=== PATIENT | male | born 1985 | race Caucasian/White ===

== ENCOUNTER 2016-11-11 09:02 | Inpatient (IN) | payer OTHER ==
[2016-11-11 10:16] VITALS: BMI 43.0
--- NOTE | 2016-11-11 10:54 | HP ---
COWS - Scale Resting Pulse: 0= [place] 80 or Below Sweatin=Flushed/Facial Moisture Restless Observation: 3= Extraneous Movement Pupil Size: 2= Moderately Dilated Bone or Joint Aches: 2= Severe Diffuse Aches Runny Nose/ Eye Tearin= Runny Nose/Eyes GI Upset > 30mins: 3= Vomiting/Diarrhea Tremor Observation: 2= Slight Tremor Visible Yawning Observation: 2= >3x During Session Anxiety or Irritability: 2=Irritable/Anxious Goose Flesh Skin: 0=Smooth Skin COWS Score: 20 CIWA Score - CIWA Score Nausea/Vomitin Muscle Tremors: 3 Anxiety: 3 Agitation: 3 Paroxysmal Sweats: 2 Orientation: 0-Oriented Tacttile Disturbances: 2-Mild Itch/Numbness/Burn Auditory Disturbances: 2-Mild Harshness/Frighten Visual Disturbances: 2-Mild Sensitivity Headache: 2-Mild CIWA-Ar Total Score: 22 Admission ROS BHS - HPI Chief Complaint: i need help to stop using heroin Allergies/Adverse Reactions: Allergies Allergy/AdvReac Type Severity Reaction Status Date / Time No Known Allergies Allergy Verified 11/11/16 11:05 History of Present Illness: this 31 years old male with heroin dependence and marijuana dependence,seeking help to stop,last detox [facility] 3 months ago infected both hands on clindymycin 300 mgs po tid for 2 days,has own medications several admissions in detox but relapsed longest period of sobriety 3 months insomnia Exam Limitations: No Limitations - Ebola screening Have you traveled outside of the country in the last 21 days: No Have you had contact with anyone from an Ebola affected area: No Have you been sick,other than usual withdrawal symptoms: No - Review of Systems Constitutional: Chills, Loss of Appetite, Night Sweats, Changes in sleep EENT: reports: Tearing, Nose Congestion Respiratory: reports: No Symptoms reported, Other (asthma) Cardiac: reports: Palpitations GI: reports: Diarrhea, Nausea, Vomiting, Abdominal cramping : reports: No Symptoms Reported Musculoskeletal: reports: Back Pain, Joint Pain, Muscle Pain, Joint Stiffness Integumentary: reports: Dryness Neuro: reports: Headache, Tremors Endocrine: reports: No Symptoms Reported Hematology: reports: No Symptoms Reported Psychiatric: reports: No Sypmtoms Reported (insomnia) Patient History - Patient Medical History Hx Anemia: No Hx Asthma: Yes (on albuterol nhaler) Hx Chronic Obstructive Pulmonary Disease (COPD): No Hx Cancer: No Hx Cardiac Disorders: No Hx Congestive Heart Failure: No Hx Hypertension: No Hx Hypercholesterolemia: No Hx Pacemaker: No HX Cerebrovascular Accident: No Hx Seizures: No Hx Dementia: No Hx Diabetes: No Hx Gastrointestinal Disorders: Yes (gerd no med) Hx Liver Disease: No Hx Genitourinary Disorders: No Hx Sexually Transmitted Disorders: No Hx Renal Disease (ESRD): No Hx Thyroid Disease: No Hx Human Immunodeficiency Virus (HIV): No (last 05/17 negative) Hx Hepatitis C: No Hx Depression: No Hx Suicide Attempt: No Hx Bipolar Disorder: No Hx Schizophrenia: No Other Medical History: in somnia,no suicidal - Patient Surgical History Hx Orthopedic Surgery: Yes (arthroscopic surgery of right shoulder x 2 in 2010) - PPD History Previous Implant?: Yes Documented Results: Negative w/proof Implanted On Prior [facility] Admission?: No PPD to be Administered?: Yes - Smoking Cessation Smoking history: Current every day smoker Have you smoked in the past 12 months: Yes Aproximately how many cigarettes per day: 20 Cigars Per Day: 0 Hx Chewing Tobacco Use: No Initiated information on smoking cessation: Yes 'Breaking Loose' booklet given: 11/11/16 - Substance & Tx. History Hx Alcohol Use: No Hx Substance Use: Yes Substance Use Type: Heroin, Marijuana Hx Substance Use Treatment: Yes ([facility] 08/15) - Substances Abused Heroin Route: Injection Frequency: Daily Amount used: 15 bags Age of first use: 29 Date of Last Use: 11/10/16 Xanax Route: Oral Frequency: 1-3 times last 30 days Amount used: 1-2 mg. Age of first use: 17 Date of Last Use: 11/10/16 Family Disease History - Family Disease History Family History: Denies Admission Physical Exam BHS - Vital Signs Vital Signs: Vital Signs - 24 hr 11/11/16 10:13 Temperature 97.0 F L Pulse Rate 72 Respiratory 18 Rate Blood Pressure 146/95 - Physical General Appearance: Yes: Moderate Distress, Obese, Tremorous, Irritable, Sweating, Anxious HEENTM: Yes: MERYL, Nasal Congestion Respiratory: Yes: Lungs Clear, Normal Breath Sounds, No Respiratory Distress Neck: Yes: Within Normal Limits, Supple, Trachea in good position Breast: Yes: Within Normal Limits Cardiology: Yes: Within Normal Limits, Regular Rhythm, Regular Rate, S1, S2 Abdominal: Yes: Within Normal Limits, Normal Bowel Sounds, Non Tender, Flat, Soft Genitourinary: Yes: Within Normal Limits Back: Yes: Muscle Spasm Musculoskeletal: Yes: full range of Motion, Back pain, Joint Stiffness, Muscle Pain Extremities: Yes: Tremors 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, Fully Oriented, Alert, Motor Strength 5/5 Integumentary: Yes: Dry, Track Luke, Other (infectes both hands cellulitis on clindamycin 300 mgs po did) Lymphatic: Yes: Within Normal Limits - Diagnostic (1) Cannabis dependence Current Visit: Yes Status: Acute (2) Asthma Current Visit: Yes Status: Acute (3) Cellulitis Current Visit: Yes Status: Acute (4) Morbid obesity Current Visit: Yes Status: Acute (5) Nicotine dependence Current Visit: Yes Status: Acute Cleared for Admission [facility] - Detox or Rehab [facility] Level of Care: Medically Managed Detox Regimen/Protocol: Methadone [facility] Breath Alcohol Content Breath Alcohol Content: 0 Urine Drug Screen - Results Drug Screen Negative: No Urine Drug Screen Results: THC-Marijuana, OPI-Opiates, MET-Methamphetamine, MTD- Methadone, TCA-Tricyclic Antidepress, OXY-Oxycodone
[2016-11-11] MEDS ORDERED: ACETAMINOPHEN 325 MG TABLET (FP) PO PRN (11:19)
[2016-11-11] MEDS ORDERED: hydrOXYzine PAMOATE 50 MG CAPSULE (FP) PO PRN (11:19)
[2016-11-11] MEDS ORDERED: MAG HYDROX/AL HYDROX/SIMETH 30 ML UNIT-DOSE CUP PO PRN (11:19)
[2016-11-11] MEDS ORDERED: LOPERAMIDE HCL 2 MG CAPSULE PO PRN (11:19)
[2016-11-11] MEDS ORDERED: NICOTINE POLACRILEX 2 MG GUM BUC PRN (11:19)
[2016-11-11] MEDS ORDERED: MENTHOL/PHENOL 1 EACH UD MM PRN (11:19)
[2016-11-11] MEDS ORDERED: guaiFENesin/D-METHORPHAN HB 10 ML UNIT-DOSE CUPS PO PRN (11:19)
[2016-11-11] MEDS ORDERED: P-EPHED 60MG/TRIPROLIDI 2.5MG TABLET PO PRN (11:19)
[2016-11-11] MEDS ORDERED: MAGNESIUM CITRATE 300 ML BOTTLE PO PRN (11:19)
[2016-11-11] MEDS ORDERED: MAGNESIUM HYDROX 2400MG/30ML ORAL SUSPENSION 30 ML CUP PO PRN (11:19)
[2016-11-11] MEDS ORDERED: ALBUTEROL SO4 6.7 GM HFA INHALER IH PRN (11:23)
[2016-11-11] MEDS ORDERED: METHADONE HCL 10 MG TABLET (FOR DETOX USE ONLY) PO ONE ×2 (11:25→23:00)
[2016-11-11] MEDS: diazePAM 5 MG TABLET PO PRN ×2 (12:37→22:07)
[2016-11-11] MEDS: CYCLOBENZAPRINE HCL 10 MG TABLET (FP) PO PRN ×2 (12:38→23:00)
[2016-11-11] MEDS: NICOTINE 21 MG/24 HOURS TOPICAL PATCH TD SCH (12:39)
[2016-11-11 13:58] LABS: URINE APPEARANCE CLEAR; URINE BILIRUBIN NEGATIVE (NEGATIVE); URINE BLOOD NEGATIVE (NEGATIVE); URINE COLOR AMBER; URINE GLUCOSE (UA) NEGATIVE (NEGATIVE); URINE KETONE TRACE (NEGATIVE); URINE LEUK ESTERASE NEGATIVE (NEGATIVE); URINE NITRITE NEGATIVE (NEGATIVE); URINE UROBILINOGEN NEGATIVE mg/dL (0.2-1.0)
[2016-11-11 14:14] LABS: URINE PROTEIN 1+ (NEGATIVE)
[2016-11-11 14:22] LABS: URINE MUCUS MANY; URINE RBC <1 /hpf (0-3); URINE WBC 1 /hpf (3-5)
[2016-11-11] MEDS: BACITRACIN 0.9 GM PACKET TP SCH ×2 (15:03→22:06)
[2016-11-11] MEDS: CLINDAMYCIN HCL 300 MG PO SCH ×2 (15:03→22:06)
--- NOTE | 2016-11-11 18:02 | CONSULT ---
[facility] Psychiatric Consult - Data Date of interview: 11/11/16 Admission source: [facility] Identifying data: First admisssion to [facility] for this 31 y/o male seeking detox treatment on for heroin,xanax and cannabis dependence.Patient is ,a father of three,domiciled,currently unemployed ( actively searching for work as per self-report) and supported by . Substance Abuse History: Patient admits to using heroin since age 29 (10-15 bags daily via the intravenous route/last use was on 11/10/16),xanax up to 2 mg/ day (2-3 times in past 30 days) and marijuana.Mr Robin reports smoking one pack of cigarettes daily. Medical History: Obesity,bronchial asthma,GERD and a history of arthroscopic surgery of right shoulder (2010). Psychiatric History: Patient denies. Physical/Sexual Abuse/Trauma History: Patient denies. Additional Comment: Urine Drug Screen Results : positive for marijuana,opiates, methamphetamine,methadone,tricyclic antidepressant and oxycodone. Mental Status Exam - Mental Status Exam Alert and Oriented to: Time, Place, Person Cognitive Function: Good Patient Appearance: Well Groomed (tattoos on forearms) Mood: Withdrawn, Hopeful Affect: Appropriate, Normal Range Patient Behavior: Fatigued, Cooperative Speech Pattern: Clear Voice Loudness: Normal Thought Process: Goal Oriented Thought Disorder: Not Present Hallucinations: Denies Suicidal Ideation: Denies Homicidal Ideation: Denies Insight/Judgement: Poor Sleep: Poorly, Difficulty falling asleep (wants seroquel because of history of effectiveness) Appetite: Good Muscle strength/Tone: Normal Gait/Station: Normal Psychiatric Findings - Problem List ([place] 1, 2,3) (1) Opioid dependence Current Visit: Yes Status: Acute (2) Cannabis dependence Current Visit: Yes Status: Acute (3) Nicotine dependence Current Visit: Yes Status: Acute (4) Benzodiazepine dependence Current Visit: Yes Status: Acute (5) Asthma Current Visit: Yes Status: Chronic (6) Morbid obesity Current Visit: Yes Status: Chronic (7) Insomnia Current Visit: Yes Status: Acute - Initial Treatment Plan Initial Treatment Plan: Psychoeducation provided.No previous records at [facility].Recent pharmacy claims reviewed.Detoxification is in progress.[facility] report is appreciated.Seroquel 50 mg po hs at patient's request.Ordered.Mr Robin is made aware of the potential for oversedation/falls,orthostasis,adverse cardiac events,metabolic syndrome,abnormal involuntary movements possible with that medication.He indicates that he was prescribed the same drug at [facility] and did well (successful management of insomnia).Observation.
[2016-11-11 18:33] LABS: HIV 1 & 2 AB NEGATIVE; HIV 1 AGp24 NEGATIVE
[2016-11-11] MEDS: cloNIDine HCL 0.1 MG TABLET PO SCH (22:07)
[2016-11-11] MEDS: QUEtiapine FUMARATE 50 MG TABLET PO SCH (22:07)
[2016-11-11] MEDS: THIAMINE HCL 100 MG TABLET (FP) PO SCH (22:07)
[2016-11-11] MEDS: diphenhydrAMINE HCL 50 MG CAPSULE PO PRN (22:07)
[2016-11-11] MEDS: IBUPROFEN 400 MG TABLET (FP) PO PRN (23:00)
[2016-11-12] MEDS: diazePAM 5 MG TABLET PO PRN ×4 (05:27→20:40)
[2016-11-12] MEDS: CLINDAMYCIN HCL 300 MG PO SCH ×3 (05:28→22:05)
--- NOTE | 2016-11-12 08:32 | EKG ---
Test Reason : Blood Pressure : / mmHG Vent. Rate : 071 BPM Atrial Rate : 071 BPM P-R Int : 134 ms QRS Dur : 084 ms QT Int : 410 ms P-R-T Axes : -11 019 -26 degrees QTc Int : 445 ms NORMAL SINUS RHYTHM MINIMAL VOLTAGE CRITERIA FOR LVH, MAY BE NORMAL VARIANT T WAVE ABNORMALITY, CONSIDER INFERIOR ISCHEMIA ABNORMAL ECG NO PREVIOUS ECGS AVAILABLE Confirmed by TRISTIN CHRISTIANSEN, JANNA ([id number]) on 11/12/2016 8:31:39 AM Referred By: Confirmed By:JANNA CROW MD
[2016-11-12] MEDS ORDERED: METHADONE HCL 10 MG TABLET (FOR DETOX USE ONLY) PO ONE (10:00)
[2016-11-12] MEDS: BACITRACIN 0.9 GM PACKET TP SCH ×2 (10:08→22:04)
[2016-11-12] MEDS: NICOTINE 21 MG/24 HOURS TOPICAL PATCH TD SCH (10:08)
[2016-11-12] MEDS: cloNIDine HCL 0.1 MG TABLET PO SCH ×2 (10:08→22:04)
[2016-11-12] MEDS: PRENATAL VITAMINS W/ FOLIC ACID TABLET (FP) PO SCH (10:10)
[2016-11-12] MEDS: IBUPROFEN 400 MG TABLET (FP) PO PRN (10:12)
[2016-11-12 10:27] LABS: MCH 29.3 pg (25.7-33.7); MCHC 34.3 g/dl (32.0-35.9); MEAN CELL VOLUME 85.4 fl (80-96); MEAN PLT VOLUME 8.6 fl (7.5-11.1); PLATELET COUNT 190 K/MM3 (134-434); RDW 15.6 % (11.9-15.9); WHITE BLOOD COUNT 6.7 K/mm3 (4.0-10.0)
[2016-11-12 10:44] LABS: ALBUMIN 3.8 g/dl (3.4-5.0); ALK PHOS 95 U/L (45-117); ANION GAP 5 (8-16); BILIRUBIN,TOTAL 0.9 mg/dL (0.2-1.0); CALCIUM 8.8 mg/dL (8.5-10.1); CO2 31 mmol/L (21-32); CREATININE 0.8 mg/dL (0.7-1.3); GLUCOSE,RANDOM 73 mg/dL (74-106); SGOT/AST 15 U/L (15-37); SGPT/ALT 22 U/L (12-78); TOT PROT 6.9 g/dl (6.4-8.2)
--- NOTE | 2016-11-12 12:20 | PN ---
[facility] CIWA - CIWA Score Nausea/Vomitin-Mild Nausea/No Vomiting Muscle Tremors: 2 Anxiety: 4-Mod. Anxious/Guarded Agitation: 3 Paroxysmal Sweats: 3 Orientation: 0-Oriented Tacttile Disturbances: 0-None Auditory Disturbances: 2-Mild Harshness/Frighten Visual Disturbances: 2-Mild Sensitivity Headache: 0-None Present CIWA-Ar Total Score: 17 S COWS - Scale Resting Pulse: 0= [place] 80 or Below Sweatin= Chills/Flushing Restless Observation: 1= Difficult to Sit Still Pupil Size: 0= Normal to Room Light Bone or Joint Aches: 2= Severe Diffuse Aches Runny Nose/ Eye Tearin= Nasal Congestion GI Upset > 30mins: 0= None Tremor Observation of Outstretched Hands: 2= Slight Tremor Visible Yawning Observation: 1= 1-2x During Session Anxiety or Irritability: 2=Irritable/Anxious Goose Flesh Skin: 3=Piloerection COWS Score: 13 S Progress Note (SOAP) Subjective: Lower Back Ache, Sweating, Anxious. Objective: PT. A & O X 3, OBSERVED AMBULATING ON UNIT. NO ACUTE DISTRESS. 11/12/16 12:16 Vital Signs Temperature 96.1 F L 11/12/16 09:11 Pulse Rate 74 11/12/16 09:11 Respiratory Rate 18 11/12/16 09:11 Blood Pressure 124/80 11/12/16 09:11 O2 Sat by Pulse Oximetry (%) Laboratory Tests 11/11/16 11/11/16 11/12/16 11:30 12:00 06:00 WBC 6.7 RBC 4.49 Hgb 13.1 Hct 38.3 MCV 85.4 MCH 29.3 MCHC 34.3 RDW 15.6 Plt Count 190 MPV 8.6 Sodium Potassium Chloride Carbon Dioxide Anion Gap BUN Creatinine Creat Clearance w eGFR Random Glucose Calcium Total Bilirubin AST ALT Alkaline Phosphatase Total Protein Albumin Urine Color Gabby Urine Appearance Clear Urine pH 5.0 Ur Specific [place] >= 1.030 H Urine Protein 1+ H Urine Glucose (UA) Negative Urine Ketones Trace H Urine Blood Negative Urine Nitrite Negative Urine Bilirubin Negative Urine Urobilinogen Negative Ur Leukocyte Esterase Negative Urine RBC <1 Urine WBC 1 Ur Epithelial Cells Rare Urine Mucus Many HIV 1&2 Antibody Screen Negative HIV P24 Antigen Negative 11/12/16 06:00 WBC RBC Hgb Hct MCV MCH MCHC RDW Plt Count MPV Sodium 139 Potassium 4.2 Chloride 103 Carbon Dioxide 31 Anion Gap 5 L BUN 16 Creatinine 0.8 Creat Clearance w eGFR > 60 Random Glucose 73 L Calcium 8.8 Total Bilirubin 0.9 AST 15 ALT 22 Alkaline Phosphatase 95 Total Protein 6.9 Albumin 3.8 Urine Color Urine Appearance Urine pH Ur Specific [place] Urine Protein Urine Glucose (UA) Urine Ketones Urine Blood Urine Nitrite Urine Bilirubin Urine Urobilinogen Ur Leukocyte Esterase Urine RBC Urine WBC Ur Epithelial Cells Urine Mucus HIV 1&2 Antibody Screen HIV P24 Antigen LABS NOTED. Assessment: 11/12/16 12:17 WITHDRAWAL SYMPTOMS. Plan: CONTINUE DETOX.
[2016-11-12] MEDS: CYCLOBENZAPRINE HCL 10 MG TABLET (FP) PO PRN ×2 (14:33→22:05)
[2016-11-12] MEDS: THIAMINE HCL 100 MG TABLET (FP) PO SCH (22:04)
[2016-11-12] MEDS: QUEtiapine FUMARATE 50 MG TABLET PO SCH (22:05)
[2016-11-12] MEDS: diphenhydrAMINE HCL 50 MG CAPSULE PO PRN (22:06)
[2016-11-13] MEDS: diazePAM 5 MG TABLET PO PRN ×3 (05:29→14:42)
[2016-11-13] MEDS: IBUPROFEN 400 MG TABLET (FP) PO PRN ×2 (05:31→20:50)
[2016-11-13] MEDS: CLINDAMYCIN HCL 300 MG PO SCH ×3 (06:49→22:02)
[2016-11-13] MEDS ORDERED: METHADONE HCL 5 MG TABLET (FOR DETOX USE ONLY) PO ONE (10:00)
[2016-11-13] MEDS: BACITRACIN 0.9 GM PACKET TP SCH ×2 (10:05→22:01)
[2016-11-13] MEDS: CYCLOBENZAPRINE HCL 10 MG TABLET (FP) PO PRN ×2 (10:05→22:01)
[2016-11-13] MEDS: cloNIDine HCL 0.1 MG TABLET PO SCH ×2 (10:05→22:01)
[2016-11-13] MEDS: PRENATAL VITAMINS W/ FOLIC ACID TABLET (FP) PO SCH (10:05)
[2016-11-13] MEDS: NICOTINE 21 MG/24 HOURS TOPICAL PATCH TD SCH (10:06)
--- NOTE | 2016-11-13 14:43 | PN ---
S COWS - Scale Resting Pulse: 0= [place] 80 or Below Sweatin= Chills/Flushing Restless Observation: 3= Extraneous Movement Pupil Size: 0= Normal to Room Light Bone or Joint Aches: 2= Severe Diffuse Aches Runny Nose/ Eye Tearin= Runny Nose/Eyes GI Upset > 30mins: 2= Nausea/Diarrhea Tremor Observation of Outstretched Hands: 2= Slight Tremor Visible Yawning Observation: 0= None Anxiety or Irritability: 2=Irritable/Anxious Goose Flesh Skin: 0=Smooth Skin COWS Score: 14 BHS Progress Note (SOAP) Subjective: Nasal congestion, irritable, sweating, interrupted sleep Objective: 11/13/16 14:40 Last Vital Signs Temp Pulse Resp BP Pulse Ox 97.2 F L 78 18 111/73 11/13/16 12:57 11/13/16 12:57 11/13/16 12:57 11/13/16 12:57 Laboratory Tests 11/11/16 11/11/16 11/12/16 11:30 12:00 06:00 WBC 6.7 RBC 4.49 Hgb 13.1 Hct 38.3 MCV 85.4 MCH 29.3 MCHC 34.3 RDW 15.6 Plt Count 190 MPV 8.6 Sodium Potassium Chloride Carbon Dioxide Anion Gap BUN Creatinine Creat Clearance w eGFR Random Glucose Calcium Total Bilirubin AST ALT Alkaline Phosphatase Total Protein Albumin Urine Color Gabby Urine Appearance Clear Urine pH 5.0 Ur Specific [place] >= 1.030 H Urine Protein 1+ H Urine Glucose (UA) Negative Urine Ketones Trace H Urine Blood Negative Urine Nitrite Negative Urine Bilirubin Negative Urine Urobilinogen Negative Ur Leukocyte Esterase Negative Urine RBC <1 Urine WBC 1 Ur Epithelial Cells Rare Urine Mucus Many RPR Titer HIV 1&2 Antibody Screen Negative HIV P24 Antigen Negative 11/12/16 11/12/16 06:00 06:00 WBC RBC Hgb Hct MCV MCH MCHC RDW Plt Count MPV Sodium 139 Potassium 4.2 Chloride 103 Carbon Dioxide 31 Anion Gap 5 L BUN 16 Creatinine 0.8 Creat Clearance w eGFR > 60 Random Glucose 73 L Calcium 8.8 Total Bilirubin 0.9 AST 15 ALT 22 Alkaline Phosphatase 95 Total Protein 6.9 Albumin 3.8 Urine Color Urine Appearance Urine pH Ur Specific [place] Urine Protein Urine Glucose (UA) Urine Ketones Urine Blood Urine Nitrite Urine Bilirubin Urine Urobilinogen Ur Leukocyte Esterase Urine RBC Urine WBC Ur Epithelial Cells Urine Mucus RPR Titer Nonreactive HIV 1&2 Antibody Screen HIV P24 Antigen Labs noted: UA: 1+ protein Assessment: 11/13/16 14:42 Withdrawal symptoms Proteinuria noted Plan: Continue detox Proteinuria: encouraged to drink lots of water, repeat UA
[2016-11-13] MEDS: THIAMINE HCL 100 MG TABLET (FP) PO SCH (22:01)
[2016-11-13] MEDS: QUEtiapine FUMARATE 50 MG TABLET PO SCH (22:01)
[2016-11-13] MEDS: diphenhydrAMINE HCL 50 MG CAPSULE PO PRN (22:01)
[2016-11-14] MEDS: CLINDAMYCIN HCL 300 MG PO SCH ×3 (05:11→22:02)
[2016-11-14] MEDS: diazePAM 5 MG TABLET PO PRN ×2 (05:12→10:12)
[2016-11-14] MEDS: IBUPROFEN 400 MG TABLET (FP) PO PRN (05:13)
[2016-11-14] MEDS ORDERED: METHADONE HCL 5 MG TABLET (FOR DETOX USE ONLY) PO ONE (10:00)
[2016-11-14] MEDS ORDERED: METHADONE HCL 10 MG TABLET (FOR DETOX USE ONLY) PO ONE (10:00)
[2016-11-14] MEDS: NICOTINE 21 MG/24 HOURS TOPICAL PATCH TD SCH (10:13)
[2016-11-14] MEDS: cloNIDine HCL 0.1 MG TABLET PO SCH ×2 (10:13→22:02)
[2016-11-14] MEDS: PRENATAL VITAMINS W/ FOLIC ACID TABLET (FP) PO SCH (10:16)
[2016-11-14] MEDS: BACITRACIN 0.9 GM PACKET TP SCH ×2 (10:55→22:03)
--- NOTE | 2016-11-14 13:45 | PN ---
BHS Progress Note (SOAP) Subjective: Tremors (Slight). Objective: PT. A & O X 3, OBSERVED AMBULATING ON UNIT. NO ACUTE DISTRESS. 11/14/16 13:40 Vital Signs Temperature 97.0 F L 11/14/16 09:47 Pulse Rate 80 11/14/16 09:47 Respiratory Rate 18 11/14/16 09:47 Blood Pressure 116/80 11/14/16 09:47 O2 Sat by Pulse Oximetry (%) Laboratory Tests 11/11/16 11/11/16 11/12/16 11:30 12:00 06:00 WBC 6.7 RBC 4.49 Hgb 13.1 Hct 38.3 MCV 85.4 MCH 29.3 MCHC 34.3 RDW 15.6 Plt Count 190 MPV 8.6 Sodium Potassium Chloride Carbon Dioxide Anion Gap BUN Creatinine Creat Clearance w eGFR Random Glucose Calcium Total Bilirubin AST ALT Alkaline Phosphatase Total Protein Albumin Urine Color Gabby Urine Appearance Clear Urine pH 5.0 Ur Specific [place] >= 1.030 H Urine Protein 1+ H Urine Glucose (UA) Negative Urine Ketones Trace H Urine Blood Negative Urine Nitrite Negative Urine Bilirubin Negative Urine Urobilinogen Negative Ur Leukocyte Esterase Negative Urine RBC <1 Urine WBC 1 Ur Epithelial Cells Rare Urine Mucus Many RPR Titer HIV 1&2 Antibody Screen Negative HIV P24 Antigen Negative 11/12/16 11/12/16 06:00 06:00 WBC RBC Hgb Hct MCV MCH MCHC RDW Plt Count MPV Sodium 139 Potassium 4.2 Chloride 103 Carbon Dioxide 31 Anion Gap 5 L BUN 16 Creatinine 0.8 Creat Clearance w eGFR > 60 Random Glucose 73 L Calcium 8.8 Total Bilirubin 0.9 AST 15 ALT 22 Alkaline Phosphatase 95 Total Protein 6.9 Albumin 3.8 Urine Color Urine Appearance Urine pH Ur Specific [place] Urine Protein Urine Glucose (UA) Urine Ketones Urine Blood Urine Nitrite Urine Bilirubin Urine Urobilinogen Ur Leukocyte Esterase Urine RBC Urine WBC Ur Epithelial Cells Urine Mucus RPR Titer Nonreactive HIV 1&2 Antibody Screen HIV P24 Antigen LABS NOTED. Assessment: 11/14/16 13:40 WITHDRAWAL SYMPTOMS. Plan: CONTINUE DETOX. PATIENT REPORTS MINIMAL DETOX SYMPTOMS AT THIS TIME. AT PATIENT'S REQUEST, DETOX MEDICATION (METHADONE) SCHEDULE MODIFIED SO THAT PATIENT MAY BE ABLE TO BE DISCHARGED TOMORROW, 11/15/2016.
[2016-11-14] MEDS: THIAMINE HCL 100 MG TABLET (FP) PO SCH (22:02)
[2016-11-14] MEDS: QUEtiapine FUMARATE 50 MG TABLET PO SCH (22:02)
[2016-11-14] MEDS: diphenhydrAMINE HCL 50 MG CAPSULE PO PRN (22:03)
[2016-11-14] MEDS: CYCLOBENZAPRINE HCL 10 MG TABLET (FP) PO PRN (22:04)
[2016-11-15] MEDS ORDERED: METHADONE HCL 5 MG TABLET (FOR DETOX USE ONLY) PO ONE (06:00)
[2016-11-15] MEDS: CLINDAMYCIN HCL 300 MG PO SCH (06:00)
[2016-11-15] MEDS: CYCLOBENZAPRINE HCL 10 MG TABLET (FP) PO PRN (06:03)
[2016-11-15] MEDS: IBUPROFEN 400 MG TABLET (FP) PO PRN (06:18)
[2016-11-15 09:40] VITALS: BP 128/77; PULSE 63; TEMP 96.9
[2016-11-15] MEDS ORDERED: METHADONE HCL 10 MG TABLET (FOR DETOX USE ONLY) PO ONE (10:00)
--- NOTE | 2016-11-15 10:23 | DS ---
[facility] Detox Discharge Summary Admission Date: 11/11/16 Discharge Date: 11/15/16 - History Present History: Cannabis Dependence, Opioid Dependence, Sedative Dependence Additional Comments: Patient electing to go home at this time, reports that he will return to previous outpatient NA program. Also Advised patient to complete currently prescribed full course of antibiotic (Clindamycin, 300 mg PO TID) for Cellulitis and to follow-up with his current Primary Care Medical Provider for further evaluation after discharge from Detox. Pertinent Past History: Asthma, GERD, Cellulitis. - Physical Exam Results Vital Signs: Vital Signs Temperature 96.9 F L 11/15/16 09:39 Pulse Rate 63 11/15/16 09:39 Respiratory Rate 18 11/15/16 09:39 Blood Pressure 128/77 11/15/16 09:39 O2 Sat by Pulse Oximetry (%) Pertinent Admission Physical Exam Findings: WITHDRAWAL SYMPTOMS. Laboratory Tests 11/11/16 11/11/16 11/12/16 11:30 12:00 06:00 WBC 6.7 RBC 4.49 Hgb 13.1 Hct 38.3 MCV 85.4 MCH 29.3 MCHC 34.3 RDW 15.6 Plt Count 190 MPV 8.6 Sodium Potassium Chloride Carbon Dioxide Anion Gap BUN Creatinine Creat Clearance w eGFR Random Glucose Calcium Total Bilirubin AST ALT Alkaline Phosphatase Total Protein Albumin Urine Color Gabby Urine Appearance Clear Urine pH 5.0 Ur Specific [place] >= 1.030 H Urine Protein 1+ H Urine Glucose (UA) Negative Urine Ketones Trace H Urine Blood Negative Urine Nitrite Negative Urine Bilirubin Negative Urine Urobilinogen Negative Ur Leukocyte Esterase Negative Urine RBC <1 Urine WBC 1 Ur Epithelial Cells Rare Urine Mucus Many RPR Titer HIV 1&2 Antibody Screen Negative HIV P24 Antigen Negative 11/12/16 11/12/16 06:00 06:00 WBC RBC Hgb Hct MCV MCH MCHC RDW Plt Count MPV Sodium 139 Potassium 4.2 Chloride 103 Carbon Dioxide 31 Anion Gap 5 L BUN 16 Creatinine 0.8 Creat Clearance w eGFR > 60 Random Glucose 73 L Calcium 8.8 Total Bilirubin 0.9 AST 15 ALT 22 Alkaline Phosphatase 95 Total Protein 6.9 Albumin 3.8 Urine Color Urine Appearance Urine pH Ur Specific [place] Urine Protein Urine Glucose (UA) Urine Ketones Urine Blood Urine Nitrite Urine Bilirubin Urine Urobilinogen Ur Leukocyte Esterase Urine RBC Urine WBC Ur Epithelial Cells Urine Mucus RPR Titer Nonreactive HIV 1&2 Antibody Screen HIV P24 Antigen LABS NOTED. - Treatment Hospital Course: Detox Protocol Followed, Detoxed Safely, Responded well, Discharged Condition Good Patient has Accepted a Rehab Referral to: PT GOING HOME. WILL RETURN TO PROGRAM. SEE COMMENTS SECTION ABOVE. - Medication Discharge Medications: Ambulatory Orders Albuterol Sulfate Inhaler - [Ventolin Hfa Inhaler -] 2 inh PO Q4H PRN 11/11/16 Clindamycin HCl [Cleocin HCl] 300 mg PO TID 11/11/16 - Diagnosis (1) Benzodiazepine dependence Status: Acute (2) Cannabis dependence Status: Acute (3) Cellulitis Status: Acute Qualifiers: Site of cellulitis: extremity Site of cellulitis of extremity: upper extremity Laterality: unspecified laterality Qualified Code(s): L03.119 - Cellulitis of unspecified part of limb (4) Insomnia Status: Acute Qualifiers: Insomnia type: unspecified Qualified Code(s): G47.00 - Insomnia, unspecified (5) Nicotine dependence Status: Chronic Qualifiers: Nicotine product type: cigarettes Substance use status: uncomplicated Qualified Code(s): F17.210 - Nicotine dependence, cigarettes, uncomplicated (6) Opioid dependence Status: Acute Qualifiers: Substance use status: uncomplicated Qualified Code(s): F11.20 - Opioid dependence, uncomplicated (7) Asthma Status: Chronic Qualifiers: Asthma severity: mild intermittent Asthma complication type: uncomplicated Qualified Code(s): J45.20 - Mild intermittent asthma, uncomplicated (8) Morbid obesity Status: Chronic - AMA Did Patient Leave Against Medical Advice: No
[2016-11-16] MEDS ORDERED: METHADONE HCL 5 MG TABLET (FOR DETOX USE ONLY) PO ONE (06:00)
== END 2016-11-15 08:53 | disposition home or self-care (01) | DRG 773 ==
LOC: YASAS 09:02 → Y3N 11:00
PROVIDERS: ADMIT Internal Medicine; ATTEND Internal Medicine
PROC: HZ2ZZZZ Detoxification Services for Substance Abuse Treatment (ICD-10-PCS; principal; 2016-11-15)
DX: F11.20 Opioid dependence, uncomplicated (principal); F13.20 Sedative, hypnotic or anxiolytic dependence, uncomplicated; F12.20 Cannabis dependence, uncomplicated; F17.210 Nicotine dependence, cigarettes, uncomplicated; G47.00 Insomnia, unspecified; J45.20 Mild intermittent asthma, uncomplicated; E66.01 Morbid (severe) obesity due to excess calories; Z68.41 Body mass index [BMI] 40.0-44.9, adult; L03.114 Cellulitis of left upper limb; L03.113 Cellulitis of right upper limb
CPT/HCPCS: 36415; 80053; 81003; 81015; 85027; 86593; 87389; 93005; 93010

== ENCOUNTER 2022-09-21 12:02 | Inpatient (IN) | payer OTHER ==
[2022-09-21 12:32] VITALS: BMI 37.6
[2022-09-21] MEDS ORDERED: MAGNESIUM HYDROX 2400MG/30ML ORAL SUSPENSION 30 ML CUP PO PRN (13:56)
[2022-09-21] MEDS ORDERED: NICOTINE 10 MG CARTRIDGE (INHALER) IH PRN (13:56)
[2022-09-21] MEDS ORDERED: NALOXONE HCL 0.4 MG/ML VIAL IM PRN (13:56)
[2022-09-21] MEDS ORDERED: guaiFENesin 600 MG TABLET.ER (FP) PO PRN (13:56)
[2022-09-21] MEDS ORDERED: cloNIDine HCL 0.1 MG TABLET PO PRN (13:56)
[2022-09-21] MEDS ORDERED: DICYCLOMINE HCL 10 MG CAPSULE PO PRN (13:56)
[2022-09-21] MEDS ORDERED: NALOXONE HCL (KLOXXADO) 8 MG SPRAY NS PRN (13:56)
[2022-09-21] MEDS ORDERED: IBUPROFEN 600 MG TABLET (FP) PO PRN (13:56)
[2022-09-21] MEDS ORDERED: BENZOCAINE/MENTHOL (CHLORASEPTIC ) LOZENGE MM PRN (13:56)
[2022-09-21] MEDS ORDERED: BENZONATATE 200 MG CAPSULE PO PRN (13:56)
[2022-09-21] MEDS ORDERED: LOPERAMIDE HCL 2 MG CAPSULE PO PRN (13:56)
[2022-09-21] MEDS ORDERED: ACETAMINOPHEN 325 MG TABLET (FP) PO PRN (13:56)
[2022-09-21] MEDS ORDERED: BISMUTH SUBSALICYLATE 524 MG/30 ML PO PRN (13:56)
[2022-09-21] MEDS ORDERED: methaDONE HCL 10 MG TABLET (FOR DETOX USE ONLY) PO ONE ×2 (13:56→16:45)
[2022-09-21] MEDS ORDERED: MAG HYDROX/AL HYDROX/SIMETH 30 ML UNIT-DOSE CUP PO PRN (13:56)
[2022-09-21] MEDS ORDERED: IBUPROFEN 400 MG TABLET (FP) PO PRN (13:56)
[2022-09-21] MEDS ORDERED: ONDANSETRON *ODT* 4 MG TABLET SL PRN (13:56)
[2022-09-21] MEDS ORDERED: POLYETHYLENE GLYCOL (HEALTHYLAX) 3350 17 GM PACKET PO PRN (13:56)
[2022-09-21] MEDS ORDERED: ALBUTEROL SO4 HFA INHALER IH PRN (14:00)
[2022-09-21] MEDS ORDERED: PRENATAL VITAMINS W/ FOLIC ACID TABLET (FP) PO SCH (14:00)
[2022-09-21 16:00] LABS: HEMATOCRIT 41.7 % (35.4-49); HEMOGLOBIN 14.3 GM/dL (11.7-16.9); MCH 30.7 pg (25.7-33.7); MCHC 34.3 g/dl (32.0-35.9); MEAN CELL VOLUME 89.5 fl (80-96); MEAN PLT VOLUME 7.7 fl (7.5-11.1); PLATELET COUNT 243 10^3/uL (134-434); RBC 4.66 M/mm3 (4.00-5.60); RDW 13.3 % (11.9-15.9); WHITE BLOOD COUNT 7.2 K/mm3 (4.0-10.0)
[2022-09-21 16:15] LABS: CALCIUM 10.1 mg/dL (8.5-10.1)
[2022-09-21 16:16] LABS: BLOOD UREA NITROGEN 10.7 mg/dL (7-18)
[2022-09-21 16:19] LABS: ALBUMIN 4.5 g/dl (3.4-5.0); CREATININE 0.8 mg/dL (0.55-1.3)
[2022-09-21 16:20] LABS: BILIRUBIN,TOTAL 1.6 mg/dL (0.2-1)
[2022-09-21 16:24] LABS: TOT PROT 8.1 g/dl (6.4-8.2)
[2022-09-21] MEDS: PRENATAL VITAMINS W/ FOLIC ACID TABLET (FP) PO SCH (17:29)
[2022-09-21] MEDS: ASPIRIN COATED 81 MG TABLET.EC PO SCH (19:45)
[2022-09-21] MEDS ORDERED: MELATONIN 5 MG TABLETS PO SCH (22:00)
[2022-09-21] MEDS: CARVEDILOL 6.25 MG TABLET (FP) PO SCH (22:38)
[2022-09-21] MEDS: THIAMINE HCL 100 MG TABLET (FP) PO SCH (22:38)
[2022-09-21] MEDS: SACUBITRIL/VALSARTAN 24 MG-26 MG TABLET PO SCH (22:39)
[2022-09-21] MEDS: ROSUVASTATIN CA 20 MG TABLET PO SCH (22:39)
[2022-09-22] MEDS ORDERED: PATIENT'S OWN MEDICATION (NON-FORMULARY) (Spironolact/Hydrochlorothiazid [Spironolactone-H PO SCH (10:00)
[2022-09-22] MEDS: HYDROCHLOROTHIAZIDE 25 MG TABLET (FP) PO SCH (10:21)
[2022-09-22] MEDS: PRENATAL VITAMINS W/ FOLIC ACID TABLET (FP) PO SCH (10:21)
[2022-09-22] MEDS: ASPIRIN COATED 81 MG TABLET.EC PO SCH (10:21)
[2022-09-22] MEDS: CARVEDILOL 6.25 MG TABLET (FP) PO SCH ×2 (10:21→23:18)
[2022-09-22] MEDS: SACUBITRIL/VALSARTAN 24 MG-26 MG TABLET PO SCH ×2 (10:22→23:19)
[2022-09-22] MEDS: EMPAGLIFLOZIN (NF) 10 MG TABLET PO SCH (10:23)
[2022-09-22] MEDS: METHOCARBAMOL 500 MG TABLET PO PRN ×2 (10:58→22:15)
[2022-09-22] MEDS: SPIRONOLACTONE 25 MG TABLET PO SCH (13:49)
[2022-09-22] MEDS: SUVOREXANT 10 MG TABLET PO PRN (22:15)
[2022-09-22] MEDS: THIAMINE HCL 100 MG TABLET (FP) PO SCH (22:15)
[2022-09-22] MEDS: ROSUVASTATIN CA 20 MG TABLET PO SCH (23:19)
[2022-09-23] MEDS ORDERED: methaDONE HCL 10 MG TABLET (FOR DETOX USE ONLY) PO ONE (10:00)
[2022-09-23] MEDS: PRENATAL VITAMINS W/ FOLIC ACID TABLET (FP) PO SCH (10:37)
[2022-09-23] MEDS: CARVEDILOL 6.25 MG TABLET (FP) PO SCH ×2 (10:38→22:06)
[2022-09-23] MEDS: HYDROCHLOROTHIAZIDE 25 MG TABLET (FP) PO SCH (10:39)
[2022-09-23] MEDS: ASPIRIN COATED 81 MG TABLET.EC PO SCH (10:39)
[2022-09-23] MEDS: EMPAGLIFLOZIN (NF) 10 MG TABLET PO SCH (10:39)
[2022-09-23] MEDS: METHOCARBAMOL 500 MG TABLET PO PRN ×2 (10:41→23:12)
[2022-09-23] MEDS: SACUBITRIL/VALSARTAN 24 MG-26 MG TABLET PO SCH ×2 (10:50→22:06)
[2022-09-23] MEDS: SPIRONOLACTONE 25 MG TABLET PO SCH (11:23)
[2022-09-23] MEDS: SUVOREXANT 10 MG TABLET PO PRN (22:04)
[2022-09-23] MEDS: ROSUVASTATIN CA 20 MG TABLET PO SCH (22:04)
[2022-09-23] MEDS: THIAMINE HCL 100 MG TABLET (FP) PO SCH (22:05)
[2022-09-23] MEDS: hydrOXYzine PAMOATE 25 MG CAPSULE (FP) PO PRN (23:12)
[2022-09-24] MEDS: SPIRONOLACTONE 25 MG TABLET PO SCH (10:32)
[2022-09-24] MEDS: CARVEDILOL 6.25 MG TABLET (FP) PO SCH (10:32)
[2022-09-24] MEDS: EMPAGLIFLOZIN (NF) 10 MG TABLET PO SCH (10:32)
[2022-09-24] MEDS: ASPIRIN COATED 81 MG TABLET.EC PO SCH (10:32)
[2022-09-24] MEDS: HYDROCHLOROTHIAZIDE 25 MG TABLET (FP) PO SCH (10:32)
[2022-09-24] MEDS: PRENATAL VITAMINS W/ FOLIC ACID TABLET (FP) PO SCH (10:32)
[2022-09-24] MEDS: SACUBITRIL/VALSARTAN 24 MG-26 MG TABLET PO SCH (10:33)
[2022-09-24] MEDS: METHOCARBAMOL 500 MG TABLET PO PRN ×2 (10:33→16:22)
[2022-09-24] MEDS: hydrOXYzine PAMOATE 25 MG CAPSULE (FP) PO PRN (16:22)
[2022-09-24 17:42] VITALS: BP 115/73; PULSE 110; RESP 20; TEMP 97.1
[2022-09-25] MEDS ORDERED: methaDONE HCL 10 MG TABLET (FOR DETOX USE ONLY) PO ONE (10:00)
== END 2022-09-24 17:50 | disposition left against medical advice (07) | DRG 770 ==
LOC: YASAS 12:02 → Y3N 14:10
PROVIDERS: ADMIT Allergy & Immunology; ATTEND Surgery
PROC: HZ2ZZZZ Detoxification Services for Substance Abuse Treatment (ICD-10-PCS; principal; 2022-09-21)
DX: F11.23 Opioid dependence with withdrawal (principal); F12.20 Cannabis dependence, uncomplicated; F17.210 Nicotine dependence, cigarettes, uncomplicated; G47.00 Insomnia, unspecified; I11.0 Hypertensive heart disease with heart failure; I50.9 Heart failure, unspecified; K21.9 Gastro-esophageal reflux disease without esophagitis; J45.20 Mild intermittent asthma, uncomplicated; E66.9 Obesity, unspecified; Z68.37 Body mass index [BMI] 37.0-37.9, adult
CPT/HCPCS: 36415; 80053; 85027; 86780; 87811; 93005; 93010; C9803-CS; U0003; U0005

== ENCOUNTER 2023-03-30 13:20 | Inpatient (IN) | payer OTHER ==
[2023-03-30 13:50] VITALS: BMI 39.0
[2023-03-30] MEDS ORDERED: hydrOXYzine PAMOATE 25 MG CAPSULE (FP) PO PRN (14:08)
[2023-03-30] MEDS ORDERED: BENZONATATE 200 MG CAPSULE PO PRN (14:08)
[2023-03-30] MEDS ORDERED: BUPRENORPHINE HCL 150 MCG, BUPRENORPHINE HCL 75 MCG BC PRN (14:08)
[2023-03-30] MEDS ORDERED: METHOCARBAMOL 500 MG TABLET PO PRN (14:08)
[2023-03-30] MEDS ORDERED: IBUPROFEN 600 MG TABLET (FP) PO PRN (14:08)
[2023-03-30] MEDS ORDERED: BENZOCAINE/MENTHOL (CHLORASEPTIC ) LOZENGE MM PRN (14:08)
[2023-03-30] MEDS ORDERED: NALOXONE HCL 0.4 MG/ML VIAL IM PRN (14:08)
[2023-03-30] MEDS ORDERED: cloNIDine HCL 0.1 MG TABLET PO ONE (14:08)
[2023-03-30] MEDS ORDERED: guaiFENesin 600 MG TABLET.ER (FP) PO PRN (14:08)
[2023-03-30] MEDS ORDERED: MAG HYDROX/AL HYDROX/SIMETH 30 ML UNIT-DOSE CUP PO PRN (14:08)
[2023-03-30] MEDS ORDERED: BISMUTH SUBSALICYLATE 524 MG/30 ML PO PRN (14:08)
[2023-03-30] MEDS ORDERED: DICYCLOMINE HCL 10 MG CAPSULE PO PRN (14:08)
[2023-03-30] MEDS ORDERED: MAGNESIUM HYDROX 2400MG/30ML ORAL SUSPENSION 30 ML CUP PO PRN (14:08)
[2023-03-30] MEDS ORDERED: POLYETHYLENE GLYCOL (HEALTHYLAX) 3350 17 GM PACKET PO PRN (14:08)
[2023-03-30] MEDS ORDERED: LOPERAMIDE HCL 2 MG CAPSULE PO PRN (14:08)
[2023-03-30] MEDS ORDERED: ONDANSETRON *ODT* 4 MG TABLET SL PRN (14:08)
[2023-03-30] MEDS ORDERED: IBUPROFEN 400 MG TABLET (FP) PO PRN (14:08)
[2023-03-30] MEDS ORDERED: ACETAMINOPHEN 325 MG TABLET (FP) PO PRN (14:08)
[2023-03-30] MEDS ORDERED: NALOXONE HCL (KLOXXADO) 8 MG SPRAY NS PRN (14:08)
[2023-03-30] MEDS ORDERED: BUPRENORPHINE HCL 150 MCG, BUPRENORPHINE HCL 75 MCG BC ONE (14:30)
[2023-03-30] MEDS ORDERED: BUPRENORPHINE HCL 75 MCG FILM BC ONE (16:56)
[2023-03-30] MEDS ORDERED: BUPRENORPHINE HCL 150 MCG FILM BC ONE (16:56)
[2023-03-30] MEDS ORDERED: cloNIDine HCL 0.1 MG TABLET ONE (16:57)
[2023-03-30] MEDS: PRENATAL VITAMINS W/ FOLIC ACID TABLET (FP) PO SCH (18:05)
[2023-03-30] MEDS ORDERED: cloNIDine HCL 0.1 MG TABLET PO PRN (18:08)
[2023-03-30] MEDS: diazePAM 5 MG TABLET PO PRN (18:12)
[2023-03-30] MEDS: MELATONIN 5 MG TABLETS PO SCH (23:00)
[2023-03-30] MEDS: THIAMINE HCL 100 MG TABLET (FP) PO SCH (23:00)
[2023-03-31] MEDS ORDERED: BUPRENORPHINE HCL 150 MCG, BUPRENORPHINE HCL 75 MCG BC PRN
[2023-03-31] MEDS: BUPRENORPHINE HCL 150 MCG, BUPRENORPHINE HCL 75 MCG BC SCH ×2 (07:37→18:02)
[2023-03-31] MEDS: PRENATAL VITAMINS W/ FOLIC ACID TABLET (FP) PO SCH (10:25)
[2023-03-31] MEDS: NICOTINE 14 MG/24 HOURS TOPICAL PATCH TD SCH (10:25)
[2023-03-31] MEDS: diazePAM 5 MG TABLET PO PRN ×2 (12:49→18:01)
[2023-03-31] MEDS: THIAMINE HCL 100 MG TABLET (FP) PO SCH (22:22)
[2023-03-31] MEDS: MELATONIN 5 MG TABLETS PO SCH (22:22)
[2023-04-01] MEDS: BUPRENORPHINE HCL 450 MCG FILM BC SCH ×2 (06:32→17:21)
[2023-04-01] MEDS: PRENATAL VITAMINS W/ FOLIC ACID TABLET (FP) PO SCH (10:22)
[2023-04-01] MEDS: NICOTINE 14 MG/24 HOURS TOPICAL PATCH TD SCH (10:22)
[2023-04-01] MEDS ORDERED: BUPRENORPHINE HCL 450 MCG FILM BC ONE (11:45)
[2023-04-01] MEDS: diazePAM 5 MG TABLET PO PRN (12:30)
[2023-04-01] MEDS ORDERED: ALBUTEROL SO4 HFA INHALER IH PRN (12:50)
[2023-04-01] MEDS ORDERED: PATIENT'S OWN MEDICATION (NON-FORMULARY) (Spironolact/Hydrochlorothiazid [Spironolactone-H PO SCH (13:00)
[2023-04-01] MEDS: ASPIRIN 81 MG CHEWABLE TABLETS PO SCH (13:37)
[2023-04-01] MEDS: SACUBITRIL/VALSARTAN 24 MG-26 MG TABLET PO SCH ×2 (13:37→22:44)
[2023-04-01] MEDS: HYDROCHLOROTHIAZIDE 25 MG TABLET (FP) PO SCH (13:37)
[2023-04-01] MEDS: EMPAGLIFLOZIN (JARDIANCE) 10 MG TABLET PO SCH (13:37)
[2023-04-01] MEDS: CARVEDILOL 6.25 MG TABLET (FP) PO SCH ×2 (13:38→22:44)
[2023-04-01] MEDS: SPIRONOLACTONE 25 MG TABLET PO SCH (13:39)
[2023-04-01] MEDS: THIAMINE HCL 100 MG TABLET (FP) PO SCH (22:44)
[2023-04-01] MEDS: ROSUVASTATIN CA 20 MG TABLET PO SCH (22:44)
[2023-04-01] MEDS: MELATONIN 5 MG TABLETS PO SCH (22:44)
[2023-04-02] MEDS ORDERED: BUPRENORPHINE/NALOXONE 4 MG/1 MG FILM PACKET SL SCH (06:00)
[2023-04-02] MEDS: BUPRENORPHINE HCL 450 MCG FILM BC SCH ×3 (06:18→18:52)
[2023-04-02] MEDS: HYDROCHLOROTHIAZIDE 25 MG TABLET (FP) PO SCH (10:03)
[2023-04-02] MEDS: SACUBITRIL/VALSARTAN 24 MG-26 MG TABLET PO SCH ×2 (10:03→23:07)
[2023-04-02] MEDS: PRENATAL VITAMINS W/ FOLIC ACID TABLET (FP) PO SCH (10:03)
[2023-04-02] MEDS: NICOTINE 14 MG/24 HOURS TOPICAL PATCH TD SCH (10:03)
[2023-04-02] MEDS: ASPIRIN 81 MG CHEWABLE TABLETS PO SCH (10:03)
[2023-04-02] MEDS: EMPAGLIFLOZIN (JARDIANCE) 10 MG TABLET PO SCH (10:03)
[2023-04-02] MEDS: CARVEDILOL 6.25 MG TABLET (FP) PO SCH ×2 (10:03→23:07)
[2023-04-02] MEDS: SPIRONOLACTONE 25 MG TABLET PO SCH (10:03)
[2023-04-02 20:54] VITALS: BP 120/80; PULSE 104; RESP 18; TEMP 97.6
[2023-04-02] MEDS ORDERED: BUPRENORPHINE HCL 450 MCG FILM BC ONE (23:00)
[2023-04-02] MEDS: THIAMINE HCL 100 MG TABLET (FP) PO SCH (23:07)
[2023-04-02] MEDS: ROSUVASTATIN CA 20 MG TABLET PO SCH (23:07)
[2023-04-02] MEDS: MELATONIN 5 MG TABLETS PO SCH (23:07)
[2023-04-03] MEDS ORDERED: BUPRENORPHINE/NALOXONE 8 MG/2 MG FILM PACKET SL ONE (06:00)
[2023-04-03] MEDS ORDERED: BUPRENORPHINE/NALOXONE 2 MG/0.5 MG FILM PACKET SL ONE (08:00)
== END 2023-04-03 08:35 | disposition home or self-care (01) | DRG 773 ==
LOC: YASAS 13:20 → Y3N 16:51
PROVIDERS: ADMIT Allergy & Immunology; ATTEND Surgery
PROC: HZ2ZZZZ Detoxification Services for Substance Abuse Treatment (ICD-10-PCS; principal; 2023-03-30)
DX: F11.23 Opioid dependence with withdrawal (principal); F13.20 Sedative, hypnotic or anxiolytic dependence, uncomplicated; F17.210 Nicotine dependence, cigarettes, uncomplicated; U07.1 COVID-19; I25.10 Atherosclerotic heart disease of native coronary artery without angina pectoris; I11.0 Hypertensive heart disease with heart failure; I50.9 Heart failure, unspecified; E78.5 Hyperlipidemia, unspecified; J45.20 Mild intermittent asthma, uncomplicated
CPT/HCPCS: 87635